=== PATIENT | female | born 1985 | race Caucasian/White ===

== ENCOUNTER 2017-01-16 15:03 | Emergency (ER) | payer BC ==
--- NOTE | 2017-01-16 15:09 | UC ---
Back Pain HPI - HPI Summary HPI Summary: 31 YEAR OLD FEMALE PRESENTS WITH COMPLAINS OF LEFT SIDED BACK PAIN AFTER A LONG ROAD TRIP. - History of Current Complaint Chief Complaint: UCBackPain Stated Complaint: BACK INJURY Time Seen by Provider: 01/16/17 15:05 Hx Last Menstrual Period: LAST WEEK JUL - Allergies/Home Medications Allergies/Adverse Reactions: Allergies Allergy/AdvReac Type Severity Reaction Status Date / Time No Known Allergies Allergy Verified 09/11/15 18:28 PMH/Surg Hx/FS Hx/Imm Hx Previously Healthy: Yes - Surgical History Surgical History: None - Family History Known Family History: Positive: None - Social History Alcohol Use: None Substance Use Type: None Smoking Status (MU): Current Every Day Smoker Type: Cigarettes Amount Used/How Often: 1/2 PPD Review of Systems Constitutional: Negative Skin: Negative Eyes: Negative ENT: Negative Respiratory: Negative Cardiovascular: Negative Gastrointestinal: Negative Genitourinary: Negative Motor: Negative Neurovascular: Negative Musculoskeletal: Other: - LEFT SIDED BACK PAIN/SPASM Neurological: Negative Psychological: Negative All Other Systems Reviewed And Are Negative: Yes Physical Exam Triage Information Reviewed: Yes Eye Exam: Normal ENT Exam: Normal Dental Exam: Normal Neck exam: Normal Neck: Positive: 1 Respiratory Exam: Normal Cardiovascular Exam: Normal Abdominal Exam: Normal Musculoskeletal: Positive: Other: - LEFT SIDED BACK PAIN/SPASM Neurological Exam: Normal Psychological Exam: Normal Skin Exam: Normal Back Pain Course/Dx - Differential Dx/Diagnosis Provider Diagnoses: BACK SPASM Discharge - Discharge Plan Condition: Stable Disposition: HOME Prescriptions: Methocarbamol TAB* [Robaxin 500 MG TAB*] 500 mg PO TID PRN #30 tab PRN Reason: Spasms - Back Methylprednisolone [Medrol Dosepak 4 MG*] 4 mg PO .SEE IKE INSTRUCTION #21 tab Patient Education Materials: Acute Low Back Pain (ED), Sacroiliitis (ED), Back Pain (ED), Lower Back Exercises (ED) Referrals: No Primary Care Phys,NOPCP [Primary Care Provider] - If Needed
[2017-01-16 15:11] VITALS: BP 158/94
== END 2017-01-16 15:38 | disposition home or self-care (01) ==
LOC: UCEAST 15:03
DX: M62.830 Muscle spasm of back (principal); Z32.02 Encounter for pregnancy test, result negative; F17.210 Nicotine dependence, cigarettes, uncomplicated
CPT/HCPCS: 81003; 84702; 99212; G0463

== ENCOUNTER 2017-03-15 18:40 | Emergency (ER) | payer BC ==
[2017-03-15 19:38] VITALS: BP 153/101
== END 2017-03-15 21:47 | disposition left against medical advice (07) ==
LOC: UCEAST 18:40
DX: R10.9 Unspecified abdominal pain (principal); Z53.21 Procedure and treatment not carried out due to patient leaving prior to being seen by health care provider

== ENCOUNTER 2020-03-25 09:11 | Observation (INO) ==
[2020-03-25] MEDS ORDERED: NS 0.9% 1000 ml BAG 1,000 ML IV ONE ×3 (09:32→16:08)
[2020-03-25] MEDS ORDERED: LORazepam 2 mg VIAL 1 ml IV PUSH ONE (09:38)
[2020-03-25] MEDS ORDERED: Lorazepam PYXIS KEY PRN (09:38)
[2020-03-25] MEDS ORDERED: Lorazepam PYXIS KEY ONE (09:39)
[2020-03-25] MEDS ORDERED: LORazepam 2 mg VIAL 1 ml ONE (09:40)
[2020-03-25] MEDS ORDERED: Famotidine IV 10 MG/ML 2 ml VIAL (20 mg) IV SLOW PU ONE (10:01)
[2020-03-25 10:04] LABS: ALT 29 U/L (7-52); Albumin 5.4 g/dL (3.2-5.2); Albumin/Globulin Ratio 1.5 (1-3); Alkaline Phosphatase 78 U/L (34-104); Blood Urea Nitrogen 9 mg/dL (6-24); C Reactive Protein 15.84 mg/L (<8.01); CO2 Carbon Dioxide 19 mmol/L (22-32); Calcium 11.1 mg/dL (8.6-10.3); Chloride 103 mmol/L (101-111); EGFR Non-African American 88.5 (>60); Globulin 3.6 g/dL (2-4); Glucose 110 mg/dL (70-100); Sodium 135 mmol/L (135-145)
[2020-03-25 10:14] LABS: Anion Gap 13 mmol/L (2-11)
[2020-03-25 10:15] LABS: Hematocrit 44 % (35-47); Hemoglobin 15.2 g/dL (12.0-16.0); Mean Corpuscular HGB Conc 35 g/dL (31-36); Mean Corpuscular Hemoglobin 35 pg (27-31); Mean Corpuscular Volume 100 fL (80-97); Mean Platelet Volume 7.1 fL (7.4-10.4); Platelet Count 486 10^3/uL (150-450); Red Blood Count 4.36 10^6 /uL (3.70-4.87); Red Cell Distribution Width 13 % (10-15); White Blood Count 12.4 10^3/uL (3.5-10.8)
[2020-03-25 10:20] LABS: ABS Basophils 0.1 10^3/ul (0-0.2); ABS Eosinophils 0.1 10^3/ul (0-0.6); ABS Lymphocytes 1.3 10^3/ul (1.0-4.8); ABS Monocytes 0.6 10^3/ul (0-0.8); ABS Neutrophils 10.2 10^3/ul (1.5-7.7); Eosinophil % 0.6 %; Lymphocyte % 10.8 %; Nucleated Red Blood Cells % 0.1
[2020-03-25] MEDS ORDERED: diPHENhydraMINE IV 50 MG/ML 1 ml VIAL (BENADRYL) IV ONE (16:08)
[2020-03-25] MEDS ORDERED: methylPREDNISolone 125 mg 2 ML VIAL IV ONE (16:08)
[2020-03-25] MEDS: Clindamycin 900 MG/D5W BAG 900 MG/50 ML BAG IVPB SCH (21:03)
[2020-03-25] MEDS: Famotidine IV 10 MG/ML 2 ml VIAL (20 mg) IV SLOW PU SCH (22:08)
[2020-03-25] MEDS: diPHENhydraMINE IV 50 MG/ML 1 ml VIAL (BENADRYL) SLOW PUSH SCH (22:08)
[2020-03-25] MEDS: methylPREDNISolone SOD 40 mg/ml 1 ml VIAL IV SCH (23:20)
[2020-03-26] MEDS: NS 0.9% 1000 ml BAG 1,000 ML IV SCH ×2 (00:34→12:19)
[2020-03-26] MEDS: Clindamycin 900 MG/D5W BAG 900 MG/50 ML BAG IVPB SCH ×2 (04:13→11:24)
[2020-03-26] MEDS: diPHENhydraMINE IV 50 MG/ML 1 ml VIAL (BENADRYL) SLOW PUSH SCH ×4 (04:14→21:45)
[2020-03-26 07:03] LABS: ABS Eosinophils 0.1 10^3/ul (0-0.6); ABS Lymphocytes 0.8 10^3/ul (1.0-4.8); ABS Monocytes 0.5 10^3/ul (0-0.8); ABS Neutrophils 8.4 10^3/ul (1.5-7.7); Hematocrit 37 % (35-47); Hemoglobin 12.6 g/dL (12.0-16.0); Lymphocyte % 8.4 %; Mean Corpuscular HGB Conc 34 g/dL (31-36); Mean Corpuscular Hemoglobin 35 pg (27-31); Mean Corpuscular Volume 102 fL (80-97); Mean Platelet Volume 7.2 fL (7.4-10.4); Platelet Count 391 10^3/uL (150-450); Red Blood Count 3.62 10^6 /uL (3.70-4.87); Red Cell Distribution Width 13 % (10-15); White Blood Count 9.9 10^3/uL (3.5-10.8)
[2020-03-26 07:22] LABS: BUN/Creatinine Ratio 8.7 (8-20); EGFR African American 117.8 (>60); EGFR Non-African American 97.4 (>60); Potassium 3.4 mmol/L (3.5-5.0)
[2020-03-26] MEDS ORDERED: Potassium Chlor 20 meq TAB.ER PO ONE (07:37)
[2020-03-26] MEDS: methylPREDNISolone SOD 40 mg/ml 1 ml VIAL IV SCH ×2 (07:44→15:55)
[2020-03-26] MEDS: Venlafaxine XR 75 mg PO SCH (07:45)
[2020-03-26] MEDS: Famotidine IV 10 MG/ML 2 ml VIAL (20 mg) IV SLOW PU SCH ×2 (07:45→21:45)
[2020-03-26] MEDS ORDERED: Influenza VAC *QUAD* 2020-21* 0.5 ML SYRINGE IM ONE (09:00)
[2020-03-26] MEDS ORDERED: Calamine LOTION BTL TOPICAL PRN (15:28)
[2020-03-26 17:40] LABS: Urine Appearance Clear; Urine Bilirubin Negative (Negative); Urine Blood Negative (Negative); Urine Color Straw; Urine Glucose Negative (Negative); Urine Ketones Negative (Negative); Urine Nitrite Negative (Negative); Urine Protein Negative (Negative); Urine Specific Gravity 1.005 (1.010-1.030); Urine Urobilinogen Negative (Negative)
[2020-03-27] MEDS: methylPREDNISolone SOD 40 mg/ml 1 ml VIAL IV SCH (03:13)
[2020-03-27] MEDS: diPHENhydraMINE IV 50 MG/ML 1 ml VIAL (BENADRYL) SLOW PUSH SCH ×2 (03:36→10:42)
[2020-03-27] MEDS: NS 0.9% 1000 ml BAG 1,000 ML IV SCH (05:03)
[2020-03-27 06:10] LABS: ABS Eosinophils 0.3 10^3/ul (0-0.6); ABS Lymphocytes 1.8 10^3/ul (1.0-4.8); ABS Monocytes 0.6 10^3/ul (0-0.8); ABS Neutrophils 3.7 10^3/ul (1.5-7.7); Eosinophil % 4.5 %; Hematocrit 33 % (35-47); Hemoglobin 11.7 g/dL (12.0-16.0); Mean Corpuscular HGB Conc 35 g/dL (31-36); Mean Corpuscular Hemoglobin 36 pg (27-31); Mean Corpuscular Volume 101 fL (80-97); Mean Platelet Volume 6.9 fL (7.4-10.4); Platelet Count 311 10^3/uL (150-450); Red Blood Count 3.29 10^6 /uL (3.70-4.87); Red Cell Distribution Width 13 % (10-15); White Blood Count 6.4 10^3/uL (3.5-10.8)
[2020-03-27 06:34] LABS: BUN/Creatinine Ratio 11.1 (8-20); Calcium 8.6 mg/dL (8.6-10.3); EGFR African American 130.9 (>60); EGFR Non-African American 108.2 (>60); Potassium 3.5 mmol/L (3.5-5.0)
[2020-03-27] MEDS ORDERED: Influenza VAC *QUAD* 2020-21* 0.5 ML SYRINGE IM ONE (09:00)
[2020-03-27] MEDS: Famotidine IV 10 MG/ML 2 ml VIAL (20 mg) IV SLOW PU SCH (10:41)
[2020-03-27] MEDS: Venlafaxine XR 75 mg PO SCH (10:41)
[2020-03-27 11:10] VITALS: BP 135/90
[2020-03-28 22:14] LABS: Immunoglobulin G4 25.1 mg/dL
[2020-03-30 08:53] LABS: Anaplasma phagocytophilium <1:64 titer (<1:64); Ehrlichia chaffeensis IgG AB <1:64 titer (<1:64); Lyme Disease Serology Negative (Negative)
[2020-03-31 14:24] LABS: Phospholipid Ab IgG < 9.4 GPL; Phospholipid Ab IgM, S < 9.4 MPL
[2020-03-31 16:02] LABS: Albumin 3.1 g/dL (3.4-4.7); Albumin/Globulin Ratio 1.22; Gamma Globulin 0.8 g/dL (0.6-1.6); Total Protein(PEP) 5.6 g/dL (6.3 - 7.9)
[2020-04-01 17:37] LABS: Beta 2 Glycoprotein IgG <9.4 U/mL
== END 2020-03-27 12:55 | disposition home or self-care (01) ==
LOC: MED 09:11 → ED 09:11 → MED 21:48
PROVIDERS: ADMIT Hospitalist; ATTEND Internal Medicine